=== PATIENT | female | born 1985 | race Caucasian/White ===

== ENCOUNTER 2018-10-13 13:06 | Outpatient (CLI) | payer BC ==
--- NOTE | 2018-10-13 14:50 | RAD ---
TWO VIEWS LEFT RIBS: DATE: 10/13/2018. HISTORY: Localized swelling, mass, lump just below level of left breast. FINDINGS: The left lung is clear. The left-sided ribs are intact without evidence of a fracture. No osseous ex crescence is seen and no lytic or sclerotic osseous lesion is appreciated involving the left-sided ri bs. IMPRESSION: 1. No evidence of a left-sided rib fracture or left rib lesion. 2. The left lung is clear. 3. Depending on clinical concern, CT scan may be helpful for further evaluation given the palpable a bnormality. POS: MYA
== END 2018-10-13 13:07 | disposition home or self-care (01) ==
LOC: BICRAD 13:06
PROVIDERS: ATTEND Obstetrics & Gynecology
DX: R22.2 Localized swelling, mass and lump, trunk (principal)

== ENCOUNTER 2020-02-26 14:14 | Outpatient (CLI) | payer BC ==
--- NOTE | 2020-02-26 15:05 | MMO ---
Bilateral MAMMO Bilat Diag [facility]. CLINICAL HISTORY: Patient is 34 years old and is seen for diagnostic exam and palpable abnormality in the right breast. The patient has no family history of breast cancer. The patient has no personal history of cancer. VIEWS: The views performed were: bilateral craniocaudal with tomosynthesis; bilateral mediolateral oblique with tomosynthesis; bilateral mediolateral with tomosynthesis; and bilateral exaggerated craniocaudal. FILMS COMPARED: The present examination has been compared to a prior imaging study performed at [facility] on 02/26/2020. This study has been interpreted with the assistance of computer-aided detection. MAMMOGRAM FINDINGS: The breasts are extremely dense, which may lower the sensitivity of mammography. Ultrasound of the palpable finding at 2:00 right breast showed no abnormality. There are no suspicious masses, suspicious calcifications, or new areas of architectural distortion. IMPRESSION: THERE IS NO MAMMOGRAPHIC EVIDENCE OF MALIGNANCY. AGE APPROPRIATE SCREENING BASED ON RISK FACTORS IS RECOMMENDED. THE RESULTS OF THIS EXAM WERE SENT TO THE PATIENT. ACR BI-RADS Category 2 - Benign finding MAMMOGRAPHY NOTE: 1. A negative mammogram report should not delay a biopsy if a dominant of clinically suspicious mass is present. 2. Approximately 10% to 15% of breast cancers are not detected by mammography. 3. Adenosis and dense breasts may obscure an underlying neoplasm. Reported by: WADE BUTCHER MD Electonically Signed: [id number]
--- NOTE | 2020-02-26 16:55 | RAD ---
PA AND LATERAL VIEWS OF THE CHEST: 02/26/20 HISTORY: Chest wall pain. FINDINGS: The cardiomediastinum is normal. The lungs are well expanded and clear. The bony thorax is normal. IMPRESSION: Normal exam. POS: [facility]
--- NOTE | 2020-02-26 17:21 | ULT ---
RIGHT BREAST ULTRASOUND: 02/26/20 HISTORY: Right breast lump at the 2 o'clock position. FINDINGS: Sonographic evaluation of the region of palpable concern at the 2 o'clock position of the right andi st demonstrates no abnormality. Correlation is made with the mammogram of same date. IMPRESSION: BIRADS 2: Benign Finding(s) Return to age appropriate screening based on risk factors.
== END 2020-02-26 14:15 | disposition home or self-care (01) ==
LOC: BICMAMMO 14:14
PROVIDERS: ATTEND Student in an Organized Health Care Education/Training Program
DX: N64.4 Mastodynia (principal); R07.89 Other chest pain
CPT/HCPCS: 71046; 77066; G0279

== ENCOUNTER 2020-06-20 15:23 | Outpatient (CLI) | payer BC ==
--- NOTE | 2020-06-20 15:43 | RAD ---
Chest 2 views HISTORY: Chest pain. COMPARISON: 02/26/2020. FINDINGS: Cardiac silhouette and pulmonary vasculature are unremarkable. Mediastinum is midline. No lobar consolidation, pneumothorax, or pleural fluid are apparent. IMPRESSION : No abnormalities are demonstrated.
== END 2020-06-20 15:24 | disposition home or self-care (01) ==
LOC: BICRAD 15:23
PROVIDERS: ATTEND Student in an Organized Health Care Education/Training Program
DX: K20.9 Esophagitis, unspecified (principal)
CPT/HCPCS: 71046

== ENCOUNTER 2020-07-07 13:37 | Outpatient (CLI) | payer BC ==
--- NOTE | 2020-07-07 15:41 | RAD ---
EXAM: XR Barium Swallow Esophagus PROVIDED CLINICAL HISTORY: Esophagitis. Central chest pain after swallowing. COMPARISON: None FINDINGS: [employer] chest x-ray demonstrates normal cardiac silhouette. Lungs are clear. Osseous structures have a normal appearance. Double contrast esophagram was performed. Normal primary esophageal peristalsis was demonstrated duri ng the exam. No significant tertiary contractions are seen. There is no evidence of a hiatal hernia, and no gastroesophageal reflux was demonstrated on this exam. A 12.5 mm barium tablet was adm inistered which traverses the GE junction freely and without holdup. IMPRESSION: Normal appearance of the esophagus without focal narrowing. No significant tertiary contractions were noted during the exam.
== END 2020-07-07 13:38 | disposition home or self-care (01) ==
LOC: RAD 13:37
PROVIDERS: ATTEND Student in an Organized Health Care Education/Training Program
DX: K20.90 Esophagitis, unspecified without bleeding (principal)
CPT/HCPCS: 74220